=== PATIENT | female | born 1960 | race Caucasian/White ===

== ENCOUNTER → 2018-03-15 | Day surgery (SDC) | payer BC ==
[~2018-03-15] MED LIST: AMBIEN10 MG PO; BUPIVACAINE 0.25% 30ML SDV INJ ONE; BYDUREON INJ; BYSTOLIC10 MG PO; CEFAZOLIN SOD 1 GM/NS 50ML 50 ML IV ONE; COLESTIPOL HCL1 GM PO; DESFLURANE 240 ML BTL INH ONE; DEXAMETHASONE SOD PHOS INJ 4 MG/ML VIAL ONE; FENTANYL CITRATE/PF 100MCG/2 ML INJ ONE; LEVOTHYROXINE50 MCG PO; LIDOCAINE HCL 2% LOCAL INJ 5 ML SDV VIAL INJ ONE; METFORMIN HCL500 MG PO; MIDAZOLAM HCL 2 MG/2 ML VIAL ONE; MUPIROCIN 2% OINT 22 GM TUBE ONE; ONDANSETRON HCL INJ 2MG/ML 2ML 2 MG/ML VIAL ONE; PROPOFOL IV EMULSION 10 MG/ML 20 ML VIAL ONE; SAVELLA50 MG; [UNRECOGNIZED DRUG - OTHER]
--- OUTSIDE RECORDS SUMMARY | 2018-03-15 05:22 | XMS REPORT | Summary of Care ---
Author Author [facility] Organization [facility] Address Unknown Phone Unavailable Encounter HQ Janell(GEOFF) [phone] Date(s): 11/11/14 - 11/11/14 [facility] [address] [place] [address]- Discharge Disposition: Home Attending Physician: Connie Fisher DO Referring Physician: Connie Fisher DO Vital Signs No data available for this section Problem List Condition Effective Dates Status Health Status Informant Biliary calculus1 01/12/12 Active Diabetes mellitus2 01/12/12 Active Gallstones(Confirmed Active ) Hypertension(Confirm Active ed) Hypothyroid(Confirme Active d) 1Data migrated from [employer] on 07/05/14. 2Data migrated from [employer] on 07/05/14. Allergies, Adverse Reactions, Alerts Substance Reaction Severity Status morphine1 Active 1Data migrated from [employer] on 06/03/14. Originally documented as MORPHINE. unknown Medications No data available for this section Results No data available for this section Immunizations No data available for this section Procedures Procedure Date Related Diagnosis Body Site Hysterectomy 12/2007 Colonoscopy Diagnostic laparoscopy of female pelvis Esophagoduodenostomy Operation Tonsillectomy and adenoidectomy Social History Social History Type Response Alcohol Current, Type Liquor. Frequency: 1-2 times per week. Smoking Status Never smoker; Type: Cigarettes; Exposure to Tobacco Smoke None; Cigarette Smoking Last 365 Days No; Reg Smoking Cessation Counseling No Assessment and Plan No data available for this section
--- OUTSIDE RECORDS SUMMARY | 2018-03-15 05:22 | XMS REPORT | Summary of Care ---
Author Author ROSA DUTTA M.D. Organization Unknown Address Unknown Phone Unavailable Care Team Providers Care Property Preservation Specialist Name Role Phone ROSA DUTTA M.D. Unavailable Unavailable JOSE FRANCISCO TOVAR DO Unavailable Unavailable Unavailable Unavailable Functional Status Name Dates Details Functional status health issues are not documented Status: Name Dates Details Cognitive status health issues are not documented Status: Problems Name Dates Details Atrial septal defect (745.5, Q21.1) Status: Active Dizziness (780.4, R42) Status: Active Hyperlipidemia (272.4, E78.5) Status: Active Hypertension (401.9, I10) Status: Active Type 2 diabetes mellitus (250.00, E11.9) Status: Active Medications Name Dates Details Synthroid 50 MCG Oral Tablet TAKE 1 TABLET DAILY. * Start : 08-Nov-2013 Active Ambien 10 MG Oral Tablet TAKE 1 TABLET DAILY AT BEDTIME. * Refills: 0 * Start : 08-Nov-2013 Active Lovaza 1 GM Oral Capsule TAKE 2 CAPSULE TWICE DAILY * Refills: 0 * Start : 08-Nov-2013 Active Savella 50 MG Oral Tablet BID * Refills: 0 * Start : 08-Nov-2013 Active MetFORMIN HCl - 500 MG Oral Tablet TAKE 2 TABLET TWICE DAILY * Refills: 0 * Start : 08-Nov-2013 Active Bystolic 10 MG Oral Tablet TAKE 1 TABLET DAILY. * Refills: 0 * Start : 08-Nov-2013 Active ZyrTEC Allergy 10 MG Oral Tablet TAKE 1 TABLET DAILY NEEDED. * Refills: 0 * Start : 30-Jun-2017 Active Colestipol HCl - 1 GM Oral Tablet TAKE 1 TABLET DAILY. * Refills: 0 * Start : 30-Jun-2017 Active Bydureon 2 MG Subcutaneous Pen-injector once a week * Refills: 0 * Start : 25-Dec-2017 Active Allergies and Adverse Reactions Name Dates Details Morphine Derivatives (Allergy) Status: Active Past Medical History Name Dates Details Hyperlipidemia (272.4, E78.5) Status: Active Hypertension (401.9, I10) Status: Active History of hypothyroidism (V12.29, Z86.39) Status: Resolved Procedures Procedure Dates Details History of Laparoscopy (Diagnostic) Completed History of Tonsillectomy Completed History of Hysterectomy Completed Immunization Name Dates Details Immunizations not documented Family History Name Dates Details Family history of lung cancer (V16.1, Z80.1) Status: Active Family history of cardiac disorder (V17.49, Z82.49) Status: Active Name Dates Details Family history of cardiac disorder (V17.49, Z82.49) Status: Active Name Dates Details Family history of myocardial infarction (V17.3, Z82.49) Status: Active Family history of hyperlipidemia (V18.19, Z83.438) Status: Active Family history of cardiac disorder (V17.49, Z82.49) Status: Active Name Dates Details Family history of cardiac disorder (V17.49, Z82.49) Status: Active Social History Name Dates Details Unknown if ever smoked Vital Signs Date Test Result Details [id number] BP Systolic 124 mm[Hg] Status: BP Diastolic 79 mm[Hg] Status: Height 65 in Status: Weight 174 lb Status: Body Mass Index Calculated 28.96 kg/m2 Status: Body Surface Area Calculated 1.86 m2 Status: Heart Rate 79 /min Status: Results Date Description Value Details Results not documented Plan of Care Name Dates Details Planned Observations Planned Goals not documented Planned Encounters Appointment; , ECHO On: 13-Jun-2018 10:15 Appointment; ROSA DUTTA M.D. On: 29-Jun-2018 10:00 Interventions Provided Plan* HLD * - Continue Lovaza daily + fibrates * - LDL well controlled * - Low fat diet * HTN * - Well controlled. * - Continue Bystolic 10mg HS. * - Low sodium diet * DM * - On Metformin * - PCP managing * CAROTID BRUIT * - Check carotid US * RTC 6 months * Exercise encouraged Discussion/Summary* Reviewed and discussed clinical cardiac findings and medications. * EKG reviewed and discussed. Instructions Name Dates Details Instructions not documented Encounters Appointment; ROSA DUTTA M.D. Encounter Diagnosis: Problem not documented On: 16-Jun-2016 9:00 Appointment; SE, ECHO Encounter Diagnosis: Problem not documented On: 20-Jul-2016 9:00 Appointment; ROSA DUTTA M.D. Encounter Diagnosis: Problem not documented On: 14-Dec-2016 9:30 Appointment; ROSA DUTTA M.D. Encounter Diagnosis: Problem not documented On: 30-Jun-2017 10:00 Appointment; ROSA DUTTA M.D. Encounter Diagnosis: Problem not documented On: 25-Dec-2017 13:45
--- OUTSIDE RECORDS SUMMARY | 2018-03-15 05:22 | XMS REPORT | Summary of Care ---
Author Organization Unknown Address Unknown Phone Unavailable Encounter HQ Uri_latia(GEOFF) [id number] Date(s): 03/21/14 - 03/22/14 [facility] [address] Discharge Disposition: Home Physician Attending: Bhupinder Sims MD Physician Admitting: Bhupinder Sims MD Physician_Referring: Ron Jones MD Reason for Visit OPEN CHOLECYSTECTOMY Vital Signs 1 2 3 Most recent to oldest [Reference Range]: 167.6 cm (03/22/14 8:52 AM) 167.64 cm (03/20/14 7:03 AM) Height 98.4 DegF (03/22/14 8:00 AM) 98.2 DegF (03/22/14 3:43 AM) 98.5 DegF (03/21/14 11:38 PM) Temperature Oral [96.4-99.1 DegF] 126 mmHg (03/22/14 8:00 AM) 124 mmHg (03/22/14 3:43 AM) 134 mmHg (03/21/14 11:38 PM) Systolic Blood Pressure [90-140 mmHg] 82 mmHg (03/22/14 8:00 AM) 75 mmHg (03/22/14 3:43 AM) 80 mmHg (03/21/14 11:38 PM) Diastolic Blood Pressure [60-90 mmHg] 14 BRMIN (03/22/14 8:00 AM) 16 BRMIN (03/22/14 3:43 AM) 16 BRMIN (03/21/14 11:38 PM) Respiratory Rate [14-20 BRMIN] 106 bpm *HI* (03/22/14 8:00 AM) 102 bpm *HI* (03/22/14 3:43 AM) 109 bpm *HI* (03/21/14 11:38 PM) Peripheral Pulse Rate [60-100 bpm] 79.545 kg (03/22/14 8:52 AM) 79.545 kg (03/20/14 7:03 AM) Weight 28.32 m2 (03/22/14 8:52 AM) 28.3 m2 (03/20/14 7:03 AM) Body Mass Index Problem List Condition Effective Dates Status Health Status Informant Diabetes Active mellitus(Confirmed) Gallstones(Confirmed Active ) Hypertension(Confirm Active ed) Hypothyroid(Confirme Active d) Allergies, Adverse Reactions, Alerts Substance Reaction Severity Status morphine Active Medications acetaminophen 1,000 mg, Route: IVPB, Drug form: INJ, ONCE, Dosing Weight 79.545, kg, PRN Pain Score 1-3, Start date: 03/20/14 13:08:00, Duration: 1 doses or times, Stop date: Limited # of times Start Date: 03/20/14 Stop Date: 03/20/14 Status: Discontinued Ancef 1 gm, 100 mL, Route: IVPB, Drug form: INJ, ABXQ8H, Dosing Weight 79.545, kg, Sta rt date: 03/21/14 17:00:00, Duration: 30 day, Stop date: 04/20/14 9:00:00 Start Date: 03/21/14 Stop Date: 03/22/14 Status: Discontinued Bystolic 5 mg, 2 tab, Route: PO, Drug form: TAB, Daily, Dosing Weight 79.545, kg, Start d ate: 03/21/14 9:00:00, Duration: 30 day, Stop date: 04/19/14 9:00:00 Notes: Same as: Bystolic Start Date: 03/21/14 Stop Date: 03/22/14 Status: Discontinued Bystolic 5 mg oral tablet 5 mg=1 tab, PO, Daily, # 30 tab, 0 Refill(s) Start Date: 03/20/14 Status: Ordered ceFAZolin 2 gm, Route: IVPB, ONCE, Dosing Weight 79.545, kg, Start date: 03/20/14 9:28:00, Stop date: 03/20/14 9:28:00 Start Date: 03/20/14 Stop Date: 03/20/14 Status: Completed ceFAZolin (SCIP) 1 gm, 100 mL, Route: IVPB, Drug form: INJ, Q8H, Dosing Weight 79.545, kg, Start date: 03/20/14 18:00:00, Duration: 3 doses or times, Stop date: 03/21/14 10:00:0 0 Start Date: 03/20/14 Stop Date: 03/21/14 Status: Completed Dextrose 50% Syringe 25 gm, 50 mL, Route: IVP, Drug Form: INJ, Dosing Weight 79.545, kg, PRN, PRN Blo od Glucose Results, Start date: 03/20/14 17:33:00, Duration: 30 day, Stop date: 04/19/14 18:32:00 Start Date: 03/20/14 Stop Date: 03/22/14 Status: Discontinued Dextrose 50% Syringe 12.5 gm, 25 mL, Route: IVP, Drug Form: INJ, Dosing Weight 79.545, kg, PRN, PRN B lood Glucose Results, Start date: 03/20/14 17:33:00, Duration: 30 day, Stop date : 04/19/14 18:32:00 Start Date: 03/20/14 Stop Date: 03/22/14 Status: Discontinued diphenhydrAMINE 12.5 mg, Route: IVP, Drug form: INJ, Q6H, Dosing Weight 79.545, kg, PRN Itching, Start date: 03/20/14 13:08:00, Duration: 30 day, Stop date: 04/19/14 13:07:00 Start Date: 03/20/14 Stop Date: 03/20/14 Status: Discontinued fentaNYL 25 microgram, Route: IVP, Q5Min, Dosing Weight 79.545, kg, PRN Pain Score 4-6, S tart date: 03/20/14 13:08:00, Duration: 4 doses or times, Stop date: Limited # o f times Start Date: 03/20/14 Stop Date: 03/20/14 Status: Discontinued fentaNYL 50 microgram, Route: IVP, Q5Min, Dosing Weight 79.545, kg, PRN Pain Score 7-10, Start date: 03/20/14 13:08:00, Duration: 2 doses or times, Stop date: Limited # of times Start Date: 03/20/14 Stop Date: 03/20/14 Status: Completed Fish Oil 2 gm, 2 cap, Route: PO, Drug form: CAP, BID, Dosing Weight 79.545, kg, Start redd e: 03/21/14 9:00:00, Duration: 30 day, Stop date: 04/19/14 17:00:00 Notes: (Same as: MaxEPA, [place] 3 fish oil )Non-Formulary Drug Start Date: 03/21/14 Stop Date: 03/22/14 Status: Discontinued Fish Oil 1000 mg oral capsule 2 caps, PO, BID, 0 Refill(s) Start Date: 03/20/14 Status: Ordered flumazenil 0.2 mg, Route: IVP, PRN, Dosing Weight 79.545, kg, PRN Benzodiazepine Reversal, Initial dose, Start date: 03/20/14 13:08:00, Duration: 30 day, Stop date: 14:07:00 Start Date: 03/20/14 Stop Date: 03/20/14 Status: Discontinued glucagon 1 mg, Route: IM, Drug form: PDR/INJ, PRN, Dosing Weight 79.545, kg, PRN Blood Gl ucose Results, Start date: 03/20/14 17:33:00, Duration: 30 day, Stop date: 04/19 18:32:00 Start Date: 03/20/14 Stop Date: 03/22/14 Status: Discontinued hydromorphone 0.3 mg, 0.3 mL, Route: IVP, Drug form: INJ, Q4H, Dosing Weight 79.545, kg, PRN P ain Score 4-6, Start date: 03/20/14 12:16:00, Duration: 30 day, Stop date: 04/19 12:15:00 Start Date: 03/20/14 Stop Date: 03/22/14 Status: Discontinued hydromorphone 0.5 mg, 0.5 mL, Route: IVP, Drug form: INJ, Q5Min, Dosing Weight 79.545, kg, PRN Pain Score 7-10, Start date: 03/20/14 13:08:00, Duration: 4 doses or times, Stop date: Limited # of times Start Date: 03/20/14 Stop Date: 03/20/14 Status: Discontinued insulin aspart 5 unit, 0.05 mL, Route: SUB-Q, Drug form: SOLN, TID-Before Meals, Dosing Weight 79.545, kg, PRN Blood Glucose Results, Start date: 03/20/14 17:33:00, Duration: 30 day, Stop date: 04/19/14 17:32:00 Notes: Roll in palms of hands gently; Do not shake vigorously. (Same as: NovoLO G)"single patient use only" Stable for 28 days at room temperature.Expires in _ ____ days from Date Start Date: 03/20/14 Stop Date: 03/22/14 Status: Discontinued insulin aspart 4 unit, 0.04 mL, Route: SUB-Q, Drug form: SOLN, TID-Before Meals, Dosing Weight 79.545, kg, PRN Blood Glucose Results, Start date: 03/20/14 17:33:00, Duration: 30 day, Stop date: 04/19/14 17:32:00 Notes: Roll in palms of hands gently; Do not shake vigorously. (Same as: NovoLO G)"single patient use only" Stable for 28 days at room temperature.Expires in _ ____ days from Date Start Date: 03/20/14 Stop Date: 03/22/14 Status: Discontinued insulin aspart 3 unit, 0.03 mL, Route: SUB-Q, Drug form: SOLN, TID-Before Meals, Dosing Weight 79.545, kg, PRN Blood Glucose Results, Start date: 03/20/14 17:33:00, Duration: 30 day, Stop date: 04/19/14 17:32:00 Notes: Roll in palms of hands gently; Do not shake vigorously. (Same as: NovoLO G)"single patient use only" Stable for 28 days at room temperature.Expires in _ ____ days from Date Start Date: 03/20/14 Stop Date: 03/22/14 Status: Discontinued insulin aspart 2 unit, 0.02 mL, Route: SUB-Q, Drug form: SOLN, TID-Before Meals, Dosing Weight 79.545, kg, PRN Blood Glucose Results, Start date: 03/20/14 17:33:00, Duration: 30 day, Stop date: 04/19/14 17:32:00 Notes: Roll in palms of hands gently; Do not shake vigorously. (Same as: NovoLO G)"single patient use only" Stable for 28 days at room temperature.Expires in _ ____ days from Date Start Date: 03/20/14 Stop Date: 03/22/14 Status: Discontinued insulin aspart 1 unit, 0.01 mL, Route: SUB-Q, Drug form: SOLN, TID-Before Meals, Dosing Weight 79.545, kg, PRN Blood Glucose Results, Start date: 03/20/14 17:33:00, Duration: 30 day, Stop date: 04/19/14 17:32:00 Notes: Roll in palms of hands gently; Do not shake vigorously. (Same as: NovoLO G)"single patient use only" Stable for 28 days at room temperature.Expires in _ ____ days from Date Start Date: 03/20/14 Stop Date: 03/22/14 Status: Discontinued ketorolac 30 mg, Route: IVP, ONCE, Dosing Weight 79.545, kg, Start date: 03/20/14 13:08:00 , Duration: 1 doses or times, Stop date: 03/20/14 13:08:00 Start Date: 03/20/14 Stop Date: 03/20/14 Status: Discontinued Lactated Ringers Injection IV 1,000 mL 1,000 mL, Rate: 125 ml/hr, Infuse over: 8 hr, Route: IV, Dosing Weight 79.545 kg , Total Volume: 1,000, Start date: 03/20/14 12:16:00, Duration: 30 day, Stop redd e: 04/19/14 12:15:00 Start Date: 03/20/14 Stop Date: 03/22/14 Status: Discontinued Lactated Ringers Injection IV 1000 mL 1,000 mL, Rate: 125 ml/hr, Infuse over: 8 hr, Route: IV, Dosing Weight 79.545 kg , Total Volume: 1,000, Start date: 03/20/14 13:08:00, Duration: 30 day, Stop redd e: 04/19/14 13:07:00 Start Date: 03/20/14 Stop Date: 03/20/14 Status: Discontinued Lactated Ringers Injection IV 1000 mL 1,000 mL, Rate: 25 ml/hr, Infuse over: 40 hr, Route: IV, Dosing Weight 79.545 kg , Total Volume: 1,000, Start date: 03/20/14 9:28:00, Duration: 30 day, Stop date : 04/19/14 9:27:00 Start Date: 03/20/14 Stop Date: 03/20/14 Status: Discontinued Levothroid 25 microgram, 1 tab, Route: PO, Drug form: TAB, Q630AM, Dosing Weight 79.545, kg , Start date: 03/21/14 6:30:00, Duration: 30 day, Stop date: 04/19/14 6:30:00 Notes: Take 1 hour before or 2 hours after meal; Enteral feeds may interefere wi th the absorption of this medication. (Same as:Levothroid) Start Date: 03/21/14 Stop Date: 03/22/14 Status: Discontinued Levothroid 25 mcg (0.025 mg) oral tablet 25 microgram=1 tab, PO, Daily, # 30 tab, 0 Refill(s) Start Date: 03/20/14 Status: Ordered meperidine 12.5 mg, Route: IVP, Q30Min, Dosing Weight 79.545, kg, PRN Other -See Comment, F or shivering, Start date: 03/20/14 13:08:00, Duration: 2 doses or times, Stop da te: Limited # of times Start Date: 03/20/14 Stop Date: 03/20/14 Status: Discontinued metFORMIN 500 mg oral tablet, extended release 1,000 mg=2 tab, PO, BID, # 30 tab, 0 Refill(s) Start Date: 03/20/14 Status: Ordered morphine Sulfate 2 mg, Route: IVP, Q5Min, Dosing Weight 79.545, kg, PRN Pain Score 4-6, Start redd e: 03/20/14 13:08:00, Duration: 5 doses or times, Stop date: Limited # of times Start Date: 03/20/14 Stop Date: 03/20/14 Status: Discontinued morphine Sulfate 4 mg, Route: IVP, Q5Min, Dosing Weight 79.545, kg, PRN Pain Score 7-10, Start da te: 03/20/14 13:08:00, Duration: 3 doses or times, Stop date: Limited # of times Start Date: 03/20/14 Stop Date: 03/20/14 Status: Discontinued naloxone 0.04 mg, Route: IVP, Q2MIN, Dosing Weight 79.545, kg, PRN Narcotic Reversal, Sta rt date: 03/20/14 13:08:00, Duration: 8 doses or times, Stop date: Limited # of times Start Date: 03/20/14 Stop Date: 03/20/14 Status: Discontinued NexIUM 40 mg, Route: PO, Daily, Dosing Weight 79.545, kg, Priority: NOW, Start date: 16:04:00, Duration: 30 day, Stop date: 04/20/14 9:00:00 Start Date: 03/21/14 Stop Date: 03/21/14 Status: Deleted ondansetron 4 mg, 2 mL, Route: IVP, Drug form: INJ, Q6H, Dosing Weight 79.545, kg, PRN Nause a & Vomiting, Start date: 03/20/14 12:16:00, Duration: 30 day, Stop date: 04/19/14 12:15:00 Notes: (Same as: Neto) Start Date: 03/20/14 Stop Date: 03/22/14 Status: Discontinued ondansetron 4 mg, Route: IVP, ONCE, Dosing Weight 79.545, kg, PRN Nausea & Vomiting, Start date: 03/20/14 13:08:00 Start Date: 03/20/14 Stop Date: 03/20/14 Status: Discontinued oxyCODONE 10 mg, Route: PO, Drug form: TAB, Q4H, Dosing Weight 79.545, kg, PRN Pain Score 7-10, Start date: 03/20/14 13:08:00, Duration: 30 day, Stop date: 04/19/14 13:07 :00 Start Date: 03/20/14 Stop Date: 03/20/14 Status: Discontinued oxyCODONE 5 mg, Route: PO, Drug form: TAB, Q4H, Dosing Weight 79.545, kg, PRN Pain Score 4 -6, Start date: 03/20/14 13:08:00, Duration: 30 day, Stop date: 04/19/14 13:07:0 0 Start Date: 03/20/14 Stop Date: 03/20/14 Status: Discontinued oxyCODONE 5 mg/5 mL oral solution 5 mg, Route: NG, Drug form: LIQ, Q4H, Dosing Weight 79.545, kg, PRN Pain Score 4 -6, Start date: 03/20/14 13:08:00, Duration: 30 day, Stop date: 04/19/14 13:07:0 0 Start Date: 03/20/14 Stop Date: 03/20/14 Status: Discontinued oxyCODONE 5 mg/5 mL oral solution 10 mg, Route: NG, Drug form: LIQ, Q4H, Dosing Weight 79.545, kg, PRN Pain Score 7-10, Start date: 03/20/14 13:08:00, Duration: 30 day, Stop date: 04/19/14 13:07 :00 Start Date: 03/20/14 Stop Date: 03/20/14 Status: Discontinued Premarin Vaginal 0.625 mg/g cream with applicator 1 appl, VAG, Bedtime, # 42 gm, 0 Refill(s) Start Date: 03/20/14 Status: Ordered promethazine 6.25 mg, Route: IVPB, ONCE, Dosing Weight 79.545, kg, PRN Nausea & Vomiting, Start date: 03/20/14 13:08:00 Start Date: 03/20/14 Stop Date: 03/20/14 Status: Discontinued Protonix 40 mg, 1 tab, Route: PO, Drug form: ECTAB, Before Dinner, Start date: 03/21/14 1 6:30:00, Duration: 30 day, Stop date: 04/19/14 16:30:00 Notes: Tablet should not be chewed or crushed.(Same as: Protonix) Start Date: 03/21/14 Stop Date: 03/22/14 Status: Discontinued Savella 50 mg, 0.5 tab, Route: PO, Drug form: TAB, BID, Dosing Weight 79.545, kg, Start date: 03/21/14 9:00:00, Stop date: 04/18/14 0:00:00 Notes: Same as: Savella Non Formulary Start Date: 03/21/14 Stop Date: 03/22/14 Status: Discontinued Savella 50 mg oral tablet 50 mg=1 tab, PO, BID, 0 Refill(s) Start Date: 03/20/14 Status: Ordered Tylenol with Codeine #3 oral tablet 1 tab, PO, Q6H, for pain, # 20 tab, 0 Refill(s), given to patient Start Date: 03/22/14 Status: Ordered zolpidem 10 mg, 1 tab, Route: PO, Drug form: TAB, Bedtime, Dosing Weight 79.545, kg, PRN as needed for sleep, Start date: 03/20/14 17:20:00, Stop date: 04/19/14 17:19:00 Notes: (Same As: Xavier) Start Date: 03/20/14 Stop Date: 03/22/14 Status: Discontinued zolpidem 10 mg oral tablet 10 mg=1 tab, PO, Bedtime, for sleep, 0 Refill(s) Start Date: 03/20/14 Status: Ordered Results ELECTROLYTES 1 2 3 Most recent to oldest [Reference Range]: 136 mEq/L (03/21/14 3:50 AM) 138 mEq/L (03/20/14 7:17 AM) Sodium Lvl [135-145 mEq/L] 4.0 mEq/L (03/21/14 3:50 AM) 3.5 mEq/L (03/20/14 7:17 AM) Potassium Lvl [3.5-5.1 mEq/L] 100 mEq/L (03/21/14 3:50 AM) 101 mEq/L (03/20/14 7:17 AM) Chloride Lvl [95-109 mEq/L] 24 mEq/L (03/21/14 3:50 AM) 29 mEq/L (03/20/14 7:17 AM) CO2 [24-32 mEq/L] 16.0 mEq/L (03/21/14 3:50 AM) 11.5 mEq/L (03/20/14 7:17 AM) AGAP [10.0-20.0 mEq/L] CHEM PANEL 1 2 3 Most recent to oldest [Reference Range]: 0.6 mg/dL (03/21/14 3:50 AM) 0.8 mg/dL (03/20/14 7:17 AM) Creatinine Lvl [0.5-1.4 mg/dL] 104 mL/min/1.73m2 1 *NA* (03/21/14 3:50 AM) 84 mL/min/1.73m2 2 *NA* (03/20/14 7:17 AM) eGFR 5 mg/dL *LOW* (03/21/14 3:50 AM) 7 mg/dL (03/20/14 7:17 AM) BUN [7-22 mg/dL] 8 (03/21/14 3:50 AM) 9 (03/20/14 7:17 AM) B/C Ratio [6-25] 120 mg/dL 3 *HI* (03/21/14 3:50 AM) 123 mg/dL 4 *HI* (03/20/14 7:17 AM) Glucose Lvl [70-99 mg/dL] 6.0 g/dL *LOW* (03/21/14 3:50 AM) 7.7 g/dL (03/20/14 7:17 AM) Total Protein [6.4-8.4 g/dL] 2.5 g/dL *LOW* (03/21/14 3:50 AM) 3.1 g/dL *LOW* (03/20/14 7:17 AM) Albumin Lvl [3.5-5.0 g/dL] 3.5 g/dL (03/21/14 3:50 AM) 4.6 g/dL *HI* (03/20/14 7:17 AM) Globulin [2.0-4.0 g/dL] 0.7 (03/21/14 3:50 AM) 0.7 (03/20/14 7:17 AM) A/G Ratio [0.7-1.6] 8.4 mg/dL *LOW* (03/21/14 3:50 AM) 9.6 mg/dL (03/20/14 7:17 AM) Calcium Lvl [8.5-10.5 mg/dL] 114 unit/L *HI* (03/21/14 3:50 AM) 158 unit/L *HI* (03/20/14 7:17 AM) ALT [0-65 unit/L] 40 unit/L *HI* (03/21/14 3:50 AM) 19 unit/L (03/20/14 7:17 AM) AST [0-37 unit/L] 178 unit/L *HI* (03/21/14 3:50 AM) 181 unit/L *HI* (03/20/14 7:17 AM) Alk Phos [39-136 unit/L] 0.4 mg/dL (03/21/14 3:50 AM) 0.4 mg/dL (03/20/14 7:17 AM) Bili Total [0.2-1.3 mg/dL] 28 unit/L (03/20/14 7:17 AM) Amylase Lvl [25-115 unit/L] 1Result Comment: The eGFR is calculated using the CKD-EPI formula. In most young, healthy individuals the eGFR will be >90 mL/min/1.73m2. The eGFR declines with age. An eGFR of 60-89 may be normal in some populations, particularly the elderly, for whom the CKD-EPI formula has not been extensively validated. Use of the eGFR is not recommended in the following populations: Individuals with unstable creatinine concentrations, including patients and those with serious co-morbid conditions. Patients with extremes in muscle mass or diet. The data above are obtained from the National Kidney Disease Education Program ( NKDEP) which additionally recommends that when the eGFR is used in patients with extremes of body mass index for purposes of drug dosing, the eGFR should be mul tiplied by the estimated BMI. 2Result Comment: The eGFR is calculated using the CKD-EPI formula. In most young, healthy individuals the eGFR will be >90 mL/min/1.73m2. The eGFR declines with age. An eGFR of 60-89 may be normal in some populations, particularly the elderly, for whom the CKD-EPI formula has not been extensively validated. Use of the eGFR is not recommended in the following populations: Individuals with unstable creatinine concentrations, including patients and those with serious co-morbid conditions. Patients with extremes in muscle mass or diet. The data above are obtained from the National Kidney Disease Education Program ( NKDEP) which additionally recommends that when the eGFR is used in patients with extremes of body mass index for purposes of drug dosing, the eGFR should be mul tiplied by the estimated BMI. 3Interpretive Data: Adult reference range values reflect the clinical guidelines of the [place] [employer]. 4Interpretive Data: Adult reference range values reflect the clinical guidelines of the [place] [employer]. URINE AND STOOL 1 2 3 Most recent to oldest [Reference Range]: Slight *ABN* (03/20/14 7:17 AM) UA Turbidity [Clear] Yellow *NA* (03/20/14 7:17 AM) UA Color [Yellow] 5.0 (03/20/14 7:17 AM) UA pH [5.0-8.0] 1.019 (03/20/14 7:17 AM) UA Spec Grav [<=1.030] Negative mg/dL *NA* (03/20/14 7:17 AM) UA Glucose [Negative mg/dL] Negative (03/20/14 7:17 AM) UA Blood [Negative] Negative mg/dL *NA* (03/20/14 7:17 AM) UA Ketones [Negative mg/dL] Negative mg/dL (03/20/14 7:17 AM) UA Protein [Negative mg/dL] <=1.0 mg/dL *NA* (03/20/14 7:17 AM) UA Urobilinogen [0.1-1.0 mg/dL] Negative *NA* (03/20/14 7:17 AM) UA Bili [Negative] Negative (03/20/14 7:17 AM) UA Leuk Est [Negative] Negative (03/20/14 7:17 AM) UA Nitrite [Negative] 7 /HPF *HI* (03/20/14 7:17 AM) UA WBC [0-5 /HPF] 3 /HPF *HI* (03/20/14 7:17 AM) UA RBC [0-2 /HPF] Few /HPF *NA* (03/20/14 7:17 AM) UA Bacteria [None Seen /HPF] Occasional /LPF *NA* (03/20/14 7:17 AM) UA Sq Epi [Few /LPF] Many /LPF *ABN* (03/20/14 7:17 AM) UA Mucus [None Seen /LPF] HEMATOLOGY 1 2 3 Most recent to oldest [Reference Range]: 12.2 K/CMM *HI* (03/22/14 3:35 AM) 11.0 K/CMM *HI* (03/21/14 3:50 AM) 7.9 K/CMM (03/20/14 7:17 AM) WBC [3.7-10.4 K/CMM] 3.68 M/CMM *LOW* (03/22/14 3:35 AM) 3.92 M/CMM *LOW* (03/21/14 3:50 AM) 4.32 M/CMM (03/20/14 7:17 AM) RBC [4.20-5.40 M/CMM] 10.8 g/dL *LOW* (03/22/14 3:35 AM) 11.6 g/dL *LOW* (03/21/14 3:50 AM) 12.7 g/dL (03/20/14 7:17 AM) Hgb [12.0-16.0 g/dL] 32.5 % *LOW* (03/22/14 3:35 AM) 34.4 % *LOW* (03/21/14 3:50 AM) 37.8 % (03/20/14 7:17 AM) Hct [36.0-48.0 %] 88.3 fL (03/22/14 3:35 AM) 87.7 fL (03/21/14 3:50 AM) 87.4 fL (03/20/14 7:17 AM) MCV [80.0-98.0 fL] 29.4 pg (03/22/14 3:35 AM) 29.7 pg (03/21/14 3:50 AM) 29.5 pg (03/20/14 7:17 AM) MCH [27.0-31.0 pg] 33.3 g/dL (03/22/14 3:35 AM) 33.8 g/dL (03/21/14 3:50 AM) 33.7 g/dL (03/20/14 7:17 AM) MCHC [32.0-36.0 g/dL] 12.7 % (03/22/14 3:35 AM) 12.6 % (03/21/14 3:50 AM) 12.4 % (03/20/14 7:17 AM) RDW [11.5-14.5 %] 303 K/CMM (03/22/14 3:35 AM) 331 K/CMM (03/21/14 3:50 AM) 315 K/CMM (03/20/14 7:17 AM) Platelet [133-450 K/CMM] 6.5 fL *LOW* (03/22/14 3:35 AM) 7.0 fL *LOW* (03/21/14 3:50 AM) 6.9 fL *LOW* (03/20/14 7:17 AM) MPV [7.4-10.4 fL] 72.7 % (03/21/14 3:50 AM) 61.1 % (03/20/14 7:17 AM) Segs [45.0-75.0 %] 17.3 % *LOW* (03/21/14 3:50 AM) 24.2 % (03/20/14 7:17 AM) Lymphocytes [20.0-40.0 %] 9.5 % (03/21/14 3:50 AM) 10.9 % (03/20/14 7:17 AM) Monocytes [2.0-12.0 %] 0.1 % (03/21/14 3:50 AM) 2.8 % (03/20/14 7:17 AM) Eosinophils [0.0-4.0 %] 0.4 % (03/21/14 3:50 AM) 1.0 % (03/20/14 7:17 AM) Basophils [0.0-1.0 %] 8.0 K/CMM (03/21/14 3:50 AM) 4.8 K/CMM (03/20/14 7:17 AM) Segs-Bands # [1.5-8.1 K/CMM] 1.9 K/CMM (03/21/14 3:50 AM) 1.9 K/CMM (03/20/14 7:17 AM) Lymphocytes # [1.0-5.5 K/CMM] 1.0 K/CMM *HI* (03/21/14 3:50 AM) 0.9 K/CMM *HI* (03/20/14 7:17 AM) Monocytes # [0.0-0.8 K/CMM] 0.2 K/CMM (03/20/14 7:17 AM) Eosinophils # [0.0-0.5 K/CMM] 0.1 K/CMM (03/20/14 7:17 AM) Basophils # [0.0-0.2 K/CMM] Medications Administered During Your Visit No data available for this section Immunizations No data available for this section Procedures Procedure Type Body Site Date of Procedure Related Diagnosis Colonoscopy Diagnostic laparoscopy of female pelvis Esophagoduodenostomy Hysterectomy 12/2007 Operation Tonsillectomy and adenoidectomy Social History Social History Type Response Alcohol Use: Current, Type: Liquor, Frequency: 1-2 times per week Smoking Status Never smoker, Type: Cigarettes, Exposure to Tobacco Smoke None, Cigarette Smoking Last 365 Days No, Reg Smoking Cessation Counseling No
--- OUTSIDE RECORDS SUMMARY | 2018-03-15 05:22 | XMS REPORT | Summary of Care ---
Author Organization Unknown Address Unknown Phone Unavailable Encounter HQ Sonalntr_latia(GEOFF) [id number] Date(s): 09/17/13 - 09/17/13 [facility] [address] Discharge Disposition: Home Physician Attending: Connie Fisher DO Physician_Referring: Connie Fisher DO Reason for Visit SCREENING Problem List No data available for this section Allergies, Adverse Reactions, Alerts No data available for this section Medications No data available for this section Medications Administered During Your Visit No data available for this section Immunizations No data available for this section
--- OUTSIDE RECORDS SUMMARY | 2018-03-15 05:22 | XMS REPORT | Summary of Care ---
Author Author [facility] Organization [facility] Address Unknown Phone Unavailable Encounter HQ Janell(FIN) [id number] Date(s): 03/21/17 - 03/21/17 [facility] [address] [place] [address]- [phone] Encounter Diagnosis Encounter for screening mammogram for malignant neoplasm of breast (Final) - 03/24/17 Discharge Disposition: Home or Self Care Attending Physician: Connie Fisher DO Referring Physician: [...] Procedures Procedure Date Related Diagnosis Body Site Status Hysterectomy 12/2007 Completed Colonoscopy Completed Diagnostic laparoscopy of female pelvis Completed Esophagoduodenostomy Completed Operation Completed Tonsillectomy and adenoidectomy Completed Social History Social History Type Response Alcohol Current, Type Liquor. Frequency: 1-2 times per week. Smoking Status Never smoker; Type: Cigarettes; Exposure to Tobacco Smoke None; Cigarette Smoking Last 365 Days No; Reg Smoking Cessation Counseling No entered on: 03/20/14 Assessment and Plan No data available for this section
--- OUTSIDE RECORDS SUMMARY | 2018-03-15 05:22 | XMS REPORT | Continuity of Care Document ---
Author Author [facility] Interface Address Unknown Phone Unavailable Problems Problem Status Onset Date Classification Date Reported Comments Source Encounter for screening mammogram for malignant neoplasm of breast 03/25/2017 06/27/2017 [facility] ROUTINE SCREENING LAST MMG W/ Active 02/17/2017 [facility] SCREENING *NO IMPLANTS/NO PAIN/LAST MMG Active 12/18/2015 [facility] SCREENING MAMMO Active 11/04/2014 [facility] UNK Active 03/19/2014 [facility] OPEN CHOLECYSTECTOMY Active 03/19/2014 [facility] 574.20 Active 03/19/2014 [facility] SCREENING Active 09/09/2013 [facility] ROUTINE Active 07/04/2012 [facility] Biliary calculus<sup>1</sup> Active 01/12/2012 Problem 06/27/2017 Data migrated from Ramen on 07/05/14. [facility] Diabetes mellitus<sup>2</sup> Active 01/12/2012 Problem 06/27/2017 Data migrated from Ramen on 07/05/14. [facility] DIABETES, HTN, COLON CA SCRENNING, CONSTIPATION, FAMILY Active 09/02/2011 [facility] Gallstones Active Problem 06/27/2017 [facility] Hypertension Active Problem 06/27/2017 [facility] Hypothyroid Active Problem 06/27/2017 [facility] Final: Encounter for screening mammogram for malignant neoplasm of breast 01/23/2016 [facility] Diabetes mellitus Active Problem 03/24/2014 [facility] CHOLELITHIASIS NOS Active [facility] Medications Medication Details Route Status Patient Instructions Ordering Provider Order Date Source Acetaminophen 300 MG / Codeine Phosphate 30 MG Oral Tablet [Tylenol with Codeine #3] 1 tab, PO, Q6H, for pain, # 20 tab, 0 Refill(s), given to patient Active 03/22/2014 [facility] Ancef 1 gm, 100 mL, Route: IVPB, Drug form: INJ, ABXQ8H, Dosing Weight 79.545, kg, Start date: 03/21/14 17:00:00, Duration: 30 day, Stop date: 04/20/14 9:00:00 No Longer Active 03/21/2014 [facility] Protonix 40 mg, 1 tab, Route: PO, Drug form: ECTAB, Before Dinner, Start date: 03/21/14 16:30:00, Duration: 30 day, Stop date: 04/19/14 16:30:00Notes: Tablet should not be chewed or crushed. (Same as: Protonix) No Longer Active 03/21/2014 [facility] Nexium 40 mg, Route: PO, Daily, Dosing Weight 79.545, kg, Priority: NOW, Start date: 03/21/14 16:04:00, Duration: 30 day, Stop date: 04/20/14 9:00:00 Inactive 03/21/2014 [facility] Fish Oil 2 gm, 2 cap, Route: PO, Drug form: CAP, BID, Dosing Weight 79.545, kg, Start date: 03/21/14 9:00:00, Duration: 30 day, Stop date: 04/19/14 17:00:00Notes: (Same as: MaxEPA, [place] 3 fish oil ) Non-Formulary Drug No Longer Active 03/21/2014 [facility] Bystolic 5 mg, 2 tab, Route: PO, Drug form: TAB, Daily, Dosing Weight 79.545, kg, Start date: 03/21/14 9:00:00, Duration: 30 day, Stop date: 04/19/14 9:00:00Notes: Same as: Bystolic No Longer Active 03/21/2014 [facility] Savella 50 mg, 0.5 tab, Route: PO, Drug form: TAB, BID, Dosing Weight 79.545, kg, Start date: 03/21/14 9:00:00, Stop date: 04/18/14 0:00:00Notes: Same as: Savella Non Formulary No Longer Active 03/21/2014 [facility] Levothroid 25 microgram, 1 tab, Route: PO, Drug form: TAB, Q630AM, Dosing Weight 79.545, kg, Start date: 03/21/14 6:30:00, Duration: 30 day, Stop date: 04/19/14 6:30:00Notes: Take 1 hour before or 2 hours after meal; Enteral feeds may interefere with the absorption of this medication. (Same as:Levothroid) No Longer Active 03/21/2014 [facility] 10 ML Cefazolin 100 MG/ML Prefilled Syringe 1 gm, 100 mL, Route: IVPB, Drug form: INJ, Q8H, Dosing Weight 79.545, kg, Start date: 03/20/14 18:00:00, Duration: 3 doses or times, Stop date: 03/21/14 10:00:00 No Longer Active 03/21/2014 [facility] Insulin, Aspart, Human 5 unit, 0.05 mL, Route: SUB-Q, Drug form: SOLN, TID-Before Meals, Dosing Weight 79.545, kg, PRN Blood Glucose Results, Start date: 03/20/14 17:33:00, Duration: 30 day, Stop date: 04/19/14 17:32:00Notes: Roll in palms of hands gently; Do not shake vigorously. (Same as: NovoLOG) "single patient use only" Stable for 28 days at room temperature. Expires in days from Date No Longer Active 03/20/2014 [facility] Glucagon 1 mg, Route: IM, Drug form: PDR/INJ, PRN, Dosing Weight 79.545, kg, PRN Blood Glucose Results, Start date: 03/20/14 17:33:00, Duration: 30 day, Stop date: 04/19/14 18:32:00 No Longer Active 03/20/2014 [facility] Dextrose 50% Syringe 25 gm, 50 mL, Route: IVP, Drug Form: INJ, Dosing Weight 79.545, kg, PRN, PRN Blood Glucose Results, Start date: 03/20/14 17:33:00, Duration: 30 day, Stop date: 04/19/14 18:32:00 No Longer Active 03/20/2014 [facility] zolpidem 10 mg, 1 tab, Route: PO, Drug form: TAB, Bedtime, Dosing Weight 79.545, kg, PRN as needed for sleep, Start date: 03/20/14 17:20:00, Stop date: 04/19/14 17:19:00Notes: (Same As: Xavier) No Longer Active 03/20/2014 [facility] Oxycodone 10 mg, Route: PO, Drug form: TAB, Q4H, Dosing Weight 79.545, kg, PRN Pain Score 7-10, Start date: 03/20/14 13:08:00, Duration: 30 day, Stop date: 04/19/14 13:07:00 Inactive 03/20/2014 [facility] Flumazenil 0.2 mg, Route: IVP, PRN, Dosing Weight 79.545, kg, PRN Benzodiazepine Reversal, Initial dose, Start date: 03/20/14 13:08:00, Duration: 30 day, Stop date: 04/19/14 14:07:00 Inactive 03/20/2014 [facility] Fentanyl 25 microgram, Route: IVP, Q5Min, Dosing Weight 79.545, kg, PRN Pain Score 4-6, Start date: 03/20/14 13:08:00, Duration: 4 doses or times, Stop date: Limited # of times Inactive 03/20/2014 [facility] Ketorolac 30 mg, Route: IVP, ONCE, Dosing Weight 79.545, kg, Start date: 03/20/14 13:08:00, Duration: 1 doses or times, Stop date: 03/20/14 13:08:00 Inactive 03/20/2014 [facility] Oxycodone Hydrochloride 1 MG/ML Oral Solution 5 mg, Route: NG, Drug form: LIQ, Q4H, Dosing Weight 79.545, kg, PRN Pain Score 4-6, Start date: 03/20/14 13:08:00, Duration: 30 day, Stop date: 04/19/14 13:07:00 Inactive 03/20/2014 [facility] Acetaminophen 1,000 mg, Route: IVPB, Drug form: INJ, ONCE, Dosing Weight 79.545, kg, PRN Pain Score 1-3, Start date: 03/20/14 13:08:00, Duration: 1 doses or times, Stop date: Limited # of times Inactive 03/20/2014 [facility] Naloxone 0.04 mg, Route: IVP, Q2MIN, Dosing Weight 79.545, kg, PRN Narcotic Reversal, Start date: 03/20/14 13:08:00, Duration: 8 doses or times, Stop date: Limited # of times Inactive 03/20/2014 [facility] Morphine 2 mg, Route: IVP, Q5Min, Dosing Weight 79.545, kg, PRN Pain Score 4-6, Start date: 03/20/14 13:08:00, Duration: 5 doses or times, Stop date: Limited # of times Inactive 03/20/2014 [facility] Meperidine 12.5 mg, Route: IVP, Q30Min, Dosing Weight 79.545, kg, PRN Other -See Comment, For shivering, Start date: 03/20/14 13:08:00, Duration: 2 doses or times, Stop date: Limited # of times Inactive 03/20/2014 [facility] Hydromorphone 0.5 mg, 0.5 mL, Route: IVP, Drug form: INJ, Q5Min, Dosing Weight 79.545, kg, PRN Pain Score 7-10, Start date: 03/20/14 13:08:00, Duration: 4 doses or times, Stop date: Limited # of times Inactive 03/20/2014 [facility] Ondansetron 4 mg, Route: IVP, ONCE, Dosing Weight 79.545, kg, PRN Nausea & Vomiting, Start date: 03/20/14 13:08:00 Inactive 03/20/2014 [facility] Promethazine 6.25 mg, Route: IVPB, ONCE, Dosing Weight 79.545, kg, PRN Nausea & Vomiting, Start date: 03/20/14 13:08:00 Inactive 03/20/2014 [facility] Diphenhydramine 12.5 mg, Route: IVP, Drug form: INJ, Q6H, Dosing Weight 79.545, kg, PRN Itching, Start date: 03/20/14 13:08:00, Duration: 30 day, Stop date: 04/19/14 13:07:00 Inactive 03/20/2014 [facility] Calcium Chloride 0.0014 MEQ/ML / Potassium Chloride 0.004 MEQ/ML / Sodium Chloride 0.103 MEQ/ML / Sodium Lactate 0.028 MEQ/ML Injectable Solution 1,000 mL, Rate: 125 ml/hr, Infuse over: 8 hr, Route: IV, Dosing Weight 79.545 kg, Total Volume: 1,000, Start date: 03/20/14 13:08:00, Duration: 30 day, Stop date: 04/19/14 13:07:00 Inactive 03/20/2014 [facility] Hydromorphone 0.3 mg, 0.3 mL, Route: IVP, Drug form: INJ, Q4H, Dosing Weight 79.545, kg, PRN Pain Score 4-6, Start date: 03/20/14 12:16:00, Duration: 30 day, Stop date: 04/19/14 12:15:00 No Longer Active 03/20/2014 [facility] Ondansetron 4 mg, 2 mL, Route: IVP, Drug form: INJ, Q6H, Dosing Weight 79.545, kg, PRN Nausea & Vomiting, Start date: 03/20/14 12:16:00, Duration: 30 day, Stop date: 04/19/14 12:15:00Notes: (Same as: Neto) No Longer Active 03/20/2014 [facility] Calcium Chloride 0.0014 MEQ/ML / Potassium Chloride 0.004 MEQ/ML / Sodium Chloride 0.103 MEQ/ML / Sodium Lactate 0.028 MEQ/ML Injectable Solution 1,000 mL, Rate: 125 ml/hr, Infuse over: 8 hr, Route: IV, Dosing Weight 79.545 kg, Total Volume: 1,000, Start date: 03/20/14 12:16:00, Duration: 30 day, Stop date: 04/19/14 12:15:00 No Longer Active 03/20/2014 [facility] Calcium Chloride 0.0014 MEQ/ML / Potassium Chloride 0.004 MEQ/ML / Sodium Chloride 0.103 MEQ/ML / Sodium Lactate 0.028 MEQ/ML Injectable Solution 1,000 mL, Rate: 25 ml/hr, Infuse over: 40 hr, Route: IV, Dosing Weight 79.545 kg, Total Volume: 1,000, Start date: 03/20/14 9:28:00, Duration: 30 day, Stop date: 04/19/14 9:27:00 Inactive 03/20/2014 [facility] Cefazolin 2 gm, Route: IVPB, ONCE, Dosing Weight 79.545, kg, Start date: 03/20/14 9:28:00, Stop date: 03/20/14 9:28:00 Inactive 03/20/2014 [facility] Estrogens, Conjugated ([facility]) 0.625 MG/ML Vaginal Cream [Premarin] 1 appl, VAG, Bedtime, # 42 gm, 0 Refill(s) Active 03/20/2014 [facility] Fish Oil 1000 mg oral capsule 2 caps, PO, BID, 0 Refill(s) Active 03/20/2014 [facility] zolpidem 10 mg oral tablet 10 mg=1 tab, PO, Bedtime, for sleep, 0 Refill(s) Active 03/20/2014 [facility] Levothyroxine Sodium 0.025 MG Oral Tablet [Levothroid] 25 microgram=1 tab, PO, Daily, # 30 tab, 0 Refill(s) Active 03/20/2014 [facility] nebivolol 5 MG Oral Tablet [Bystolic] 5 mg=1 tab, PO, Daily, # 30 tab, 0 Refill(s) Active 03/20/2014 [facility] Milnacipran hydrochloride 50 MG Oral Tablet [Savella] 50 mg=1 tab, PO, BID, 0 Refill(s) Active 03/20/2014 [facility] 24 HR Metformin hydrochloride 500 MG Extended Release Tablet 1,000 mg=2 tab, PO, BID, # 30 tab, 0 Refill(s) Active 03/20/2014 [facility] Allergies, Adverse Reactions, Alerts Substance Category Reaction Severity Reaction type Status Date Reported Comments Source morphine<sup>1</sup> Assertion Drug allergy Active 01/12/2012 Data migrated from Ramen on 06/03/14. Originally documented as MORPHINE. unknown [facility] morphine Assertion Drug allergy Active [facility] Immunizations Immunization Date Given Site Status Last Updated Comments Source Results Order Name Results Value Reference Range Date Interpretation Comments Source Breast Mammo Scrn LOPEZ w luc incl CAD MA Breast Mammo Scrn LOPEZ w luc incl CAD MA BILATERAL DIGITAL SCREENING MAMMOGRAM 3D/2D WITH CAD: 03/21/2017 CLINICAL: /Screen. Current study was evaluated with a Computer Aided Detection (CAD) system. COMPARISON:Comparison is made to exams dated: 01/20/2016 mammogram, 11/11/2014 mammogram, 09/17/2013 mammogram, 07/10/2012 mammogram, 01/11/2011 mammogram, and 12/16/2008 mammogram - [facility]. TECHNIQUE: Digital Breast Tomosynthesis was performed and utilized for Interpretation. [employer] Version 1.3 was utilized for computer aided detection. FINDINGS: The tissue of both breasts is heterogeneously dense, which could obscure detection of small masses. There are benign vascular calcifications in both breasts. There also are stable benign appearing densities in both breasts. No significant masses, calcifications, or other findings are seen in either breast. There has been no significant interval change. IMPRESSION: BENIGN RECOMMENDATION:There is no mammographic evidence of malignancy. A 1 year screening mammogram is recommended.(03/22/2018) This exam was interpreted at [id number] for [facility] Breast [place]. Marie Mahajan M.D. ap/penrad:03/21/2017 11:13:03 Algorithm Developer(s): Marcie Murry [facility] letter sent: BI-RADS 1/2 Mammogram BI-RADS: 2 Benign 03/21/2017 - - Read by: Marie Mahajan MD Dictated Date/time: 03/21/17 11:13 Electronically Signed by: Marie Mahajan MD 03/21/17 11:13 FINAL REPORT [facility] Digital Mammo Screen Lopez MA w luc Digital Mammo Screen Lopez MA w luc - DIGITAL MAMMO SCREEN LOPEZ MA W LUC BILATERAL DIGITAL SCREENING MAMMOGRAM 3D/2D WITH CAD: 01/20/2016 CLINICAL: Routine. 2D digital mammographic images and 3D digital tomosynthesis images were obtained in the CC and MLO projections. Current study was evaluated with a Computer Aided Detection (CAD) system. Comparison is made to exams dated: 11/11/2014 mammogram, 09/17/2013 mammogram, 07/10/2012 mammogram, 01/11/2011 mammogram, 12/16/2008 mammogram and 08/20/2007 mammogram - [facility]. The tissue of both breasts is heterogeneously dense, which could obscure detection of small masses. There are benign vascular calcifications in both breasts. There also is a benign calcification in the left breast. No significant masses, calcifications, or other findings are seen in either breast. There has been no significant interval change. IMPRESSION: BENIGN There is no mammographic evidence of malignancy. A 1 year screening mammogram is recommended. Iris Meraz M.D. jt/penrad:01/20/2016 10:48:16 Algorithm Developer: Amira Jones, [facility] This exam was dictated and interpreted by [id number] for [facility]. letter sent: Normal [facility] Mammogram BI-RADS: 2 Benign 01/20/2016 - - Read by: Iris Meraz MD Dictated Date/time: 01/20/16 10:48 Electronically Signed by: Iris Meraz MD 01/20/16 10:48 FINAL REPORT [facility] Digital Mammo Screen Lopez MA w luc Digital Mammo Screen Lopez MA w luc - DIGITAL MAMMO SCREEN LOPEZ MA W LUC BILATERAL DIGITAL SCREENING MAMMOGRAM 3D/2D WITH CAD: 11/11/2014 CLINICAL: Routine. 2D digital mammographic images and 3D digital tomosynthesis images were obtained in the CC and MLO projections. Current study was evaluated with a Computer Aided Detection (CAD) system. Comparison is made to exams dated: 09/17/2013 mammogram, 07/10/2012 mammogram, 01/11/2011 mammogram, 12/16/2008 mammogram, 08/20/2007 mammogram and 08/18/2006 mammogram - [facility]. The tissue of both breasts is heterogeneously dense, which could obscure detection of small masses. There are benign vascular calcifications in both breasts. No significant masses, calcifications, or other findings are seen in either breast. There has been no significant interval change. IMPRESSION: BENIGN There is no mammographic evidence of malignancy. A 1 year screening mammogram is recommended. Iris klein/penrad:11/11/2014 13:00:53 Algorithm Developer: Shey Quintanilla, [facility] This exam was dictated and interpreted by [id number] for [facility]. letter sent: Normal exam Mammogram BI-RADS: 2 Benign 11/11/2014 - - Read by: Iris Meraz MD Dictated Date/time: 11/11/14 13:00 Electronically Signed by: rIis Meraz MD 11/11/14 13:00 FINAL REPORT [facility] HEMATOLOGY Hct 32.5 % 36.0 - 48.0 03/22/2014 [facility] HEMATOLOGY Hgb 10.8 g/dL 12.0 - 16.0 03/22/2014 [facility] HEMATOLOGY RDW 12.7 % 11.5 - 14.5 03/22/2014 [facility] HEMATOLOGY MCV 88.3 fL 80.0 - 98.0 03/22/2014 [facility] HEMATOLOGY WBC 12.2 K/CMM 3.7 - 10.4 03/22/2014 [facility] HEMATOLOGY RBC 3.68 M/CMM 4.20 - 5.40 03/22/2014 [facility] MCH 29.4 pg 27.0 - 31.0 03/22/2014 [facility] MCHC 33.3 g/dL 32.0 - 36.0 03/22/2014 [facility] Platelet 303 K/CMM 133 - 450 03/22/2014 [facility] MPV 6.5 fL 7.4 - 10.4 03/22/2014 [facility] CHEM PANEL eGFR 104 mL/min/1.73m2 03/21/2014 1Result Comment: The eGFR is calculated using [...] from the National Kidney Disease Education Program (NKDEP) which additionally recommends that when the eGFR is used in patients with extremes of body mass index for purposes of drug dosing, the eGFR should be multiplied by the estimated BMI. [facility] CHEM PANEL AGAP 16.0 meq/L 10.0 - 20.0 03/21/2014 [facility] CHEM PANEL Creatinine Lvl 0.6 mg/dL 0.5 - 1.4 03/21/2014 [facility] CHEM PANEL Total Protein 6.0 g/dL 6.4 - 8.4 03/21/2014 [facility] CHEM PANEL CO2 24 meq/L 24 - 32 03/21/2014 [facility] CHEM PANEL Calcium Lvl 8.4 mg/dL 8.5 - 10.5 03/21/2014 [facility] CHEM PANEL B/C Ratio 8 6 - 25 03/21/2014 [facility] CHEM PANEL Globulin 3.5 g/dL 2.0 - 4.0 03/21/2014 [facility] CHEM PANEL Albumin Lvl 2.5 g/dL 3.5 - 5.0 03/21/2014 [facility] CHEM PANEL Bili Total 0.4 mg/dL 0.2 - 1.3 03/21/2014 [facility] CHEM PANEL Glucose Lvl 120 mg/dL 70 - 99 03/21/2014 3Interpretive Data: Adult reference range values reflect the clinical guidelines of the [place] [employer]. [facility] CHEM PANEL BUN 5 mg/dL 7 - 22 03/21/2014 [facility] CHEM PANEL Alk Phos 178 unit/L 39 - 136 03/21/2014 [facility] CHEM PANEL AST 40 unit/L 0 - 37 03/21/2014 [facility] CHEM PANEL ALT 114 unit/L 0 - 65 03/21/2014 [facility] CHEM PANEL A/G Ratio 0.7 0.7 - 1.6 03/21/2014 [facility] CHEM PANEL Chloride Lvl 100 meq/L 95 - 109 03/21/2014 [facility] CHEM PANEL Potassium Lvl 4.0 meq/L 3.5 - 5.1 03/21/2014 [facility] CHEM PANEL Sodium Lvl 136 meq/L 135 - 145 03/21/2014 [facility] HEMATOLOGY WBC 11.0 K/CMM 3.7 - 10.4 03/21/2014 [facility] HEMATOLOGY RBC 3.92 M/CMM 4.20 - 5.40 03/21/2014 [facility] RDW 12.6 % 11.5 - 14.5 03/21/2014 [facility] Hct 34.4 % 36.0 - 48.0 03/21/2014 [facility] MCHC 33.8 g/dL 32.0 - 36.0 03/21/2014 [facility] MCV 87.7 fL 80.0 - 98.0 03/21/2014 [facility] MCH 29.7 pg 27.0 - 31.0 03/21/2014 [facility] HEMATOLOGY MPV 7.0 fL 7.4 - 10.4 03/21/2014 [facility] Platelet 331 K/CMM 133 - 450 03/21/2014 [facility] Hgb 11.6 g/dL 12.0 - 16.0 03/21/2014 [facility] HEMATOLOGY Basophils 0.4 % 0.0 - 1.0 03/21/2014 [facility] HEMATOLOGY Eosinophils 0.1 % 0.0 - 4.0 03/21/2014 [facility] HEMATOLOGY Lymphocytes # 1.9 K/CMM 1.0 - 5.5 03/21/2014 [facility] HEMATOLOGY Segs-Bands # 8.0 K/CMM 1.5 - 8.1 03/21/2014 [facility] HEMATOLOGY Monocytes 9.5 % 2.0 - 12.0 03/21/2014 [facility] HEMATOLOGY Lymphocytes 17.3 % 20.0 - 40.0 03/21/2014 [facility] HEMATOLOGY Monocytes # 1.0 K/CMM 0.0 - 0.8 03/21/2014 [facility] HEMATOLOGY Segs 72.7 % 45.0 - 75.0 03/21/2014 [facility] CHEM PANEL Amylase Lvl 28 unit/L 25 - 115 03/20/2014 [facility] CHEM PANEL Globulin 4.6 g/dL 2.0 - 4.0 03/20/2014 [facility] CHEM PANEL A/G Ratio 0.7 0.7 - 1.6 03/20/2014 [facility] CHEM PANEL B/C Ratio 9 6 - 25 03/20/2014 [facility] CHEM PANEL AGAP 11.5 meq/L 10.0 - 20.0 03/20/2014 [facility] CHEM PANEL ALT 158 unit/L 0 - 65 03/20/2014 [facility] CHEM PANEL AST 19 unit/L 0 - 37 03/20/2014 [facility] CHEM PANEL Bili Total 0.4 mg/dL 0.2 - 1.3 03/20/2014 [facility] CHEM PANEL Alk Phos 181 unit/L 39 - 136 03/20/2014 [facility] CHEM PANEL Albumin Lvl 3.1 g/dL 3.5 - 5.0 03/20/2014 [facility] CHEM PANEL eGFR 84 mL/min/1.73m2 03/20/2014 2Result Comment: The eGFR is calculated using [...] from the National Kidney Disease Education Program (NKDEP) which additionally recommends that when the eGFR is used in patients with extremes of body mass index for purposes of drug dosing, the eGFR should be multiplied by the estimated BMI. [facility] CHEM PANEL Total Protein 7.7 g/dL 6.4 - 8.4 03/20/2014 [facility] CHEM PANEL Calcium Lvl 9.6 mg/dL 8.5 - 10.5 03/20/2014 [facility] CHEM PANEL Glucose Lvl 123 mg/dL 70 - 99 03/20/2014 4Interpretive Data: Adult reference range values reflect the clinical guidelines of the [place] [employer]. [facility] CHEM PANEL CO2 29 meq/L 24 - 32 03/20/2014 [facility] CHEM PANEL Creatinine Lvl 0.8 mg/dL 0.5 - 1.4 03/20/2014 [facility] CHEM PANEL BUN 7 mg/dL 7 - 22 03/20/2014 [facility] CHEM PANEL Potassium Lvl 3.5 meq/L 3.5 - 5.1 03/20/2014 [facility] CHEM PANEL Chloride Lvl 101 meq/L 95 - 109 03/20/2014 [facility] CHEM PANEL Sodium Lvl 138 meq/L 135 - 145 03/20/2014 [facility] HEMATOLOGY MPV 6.9 fL 7.4 - 10.4 03/20/2014 [facility] Platelet 315 K/CMM 133 - 450 03/20/2014 [facility] MCH 29.5 pg 27.0 - 31.0 03/20/2014 [facility] MCHC 33.7 g/dL 32.0 - 36.0 03/20/2014 [facility] RDW 12.4 % 11.5 - 14.5 03/20/2014 [facility] Hgb 12.7 g/dL 12.0 - 16.0 03/20/2014 [facility] MCV 87.4 fL 80.0 - 98.0 03/20/2014 [facility] Hct 37.8 % 36.0 - 48.0 03/20/2014 [facility] RBC 4.32 M/CMM 4.20 - 5.40 03/20/2014 [facility] WBC 7.9 K/CMM 3.7 - 10.4 03/20/2014 [facility] HEMATOLOGY Basophils # 0.1 K/CMM 0.0 - 0.2 03/20/2014 [facility] HEMATOLOGY Eosinophils # 0.2 K/CMM 0.0 - 0.5 03/20/2014 [facility] HEMATOLOGY Lymphocytes # 1.9 K/CMM 1.0 - 5.5 03/20/2014 [facility] HEMATOLOGY Segs-Bands # 4.8 K/CMM 1.5 - 8.1 03/20/2014 [facility] HEMATOLOGY Monocytes # 0.9 K/CMM 0.0 - 0.8 03/20/2014 [facility] HEMATOLOGY Eosinophils 2.8 % 0.0 - 4.0 03/20/2014 [facility] HEMATOLOGY Monocytes 10.9 % 2.0 - 12.0 03/20/2014 [facility] HEMATOLOGY Basophils 1.0 % 0.0 - 1.0 03/20/2014 [facility] HEMATOLOGY Lymphocytes 24.2 % 20.0 - 40.0 03/20/2014 [facility] HEMATOLOGY Segs 61.1 % 45.0 - 75.0 03/20/2014 [facility] URINE AND STOOL UA Urobilinogen <=1.0 mg/dL 0.1 - 1.0 03/20/2014 [facility] URINE AND STOOL UA RBC 3 /HPF 0 - 2 03/20/2014 [facility] URINE AND STOOL UA WBC 7 /HPF 0 - 5 03/20/2014 [facility] URINE AND STOOL UA Bacteria Few /HPF None Seen /HPF 03/20/2014 [facility] URINE AND STOOL UA Mucus Many /LPF None Seen /LPF 03/20/2014 [facility] URINE AND STOOL UA Bili Negative *NA* (03/20/14 7:17 AM) Negative 03/20/2014 [facility] URINE AND STOOL UA Blood Negative (03/20/14 7:17 AM) Negative 03/20/2014 [facility] URINE AND STOOL UA Nitrite Negative (03/20/14 7:17 AM) Negative 03/20/2014 [facility] URINE AND STOOL UA Leuk Est Negative (03/20/14 7:17 AM) Negative 03/20/2014 [facility] URINE AND STOOL UA Sq Epi Occasional /LPF Few /LPF 03/20/2014 [facility] URINE AND STOOL UA Protein Negative mg/dL Negative mg/dL 03/20/2014 [facility] URINE AND STOOL UA Glucose Negative mg/dL Negative mg/dL 03/20/2014 [facility] URINE AND STOOL UA Ketones Negative mg/dL Negative mg/dL 03/20/2014 [facility] URINE AND STOOL UA Spec Grav 1.019 <=1.030 03/20/2014 [facility] URINE AND STOOL UA pH 5.0 5.0 - 8.0 03/20/2014 [facility] URINE AND STOOL UA Turbidity Slight *ABN* (03/20/14 7:17 AM) Clear 03/20/2014 [facility] URINE AND STOOL UA Color Yellow *NA* (03/20/14 7:17 AM) Yellow 03/20/2014 [facility] Abdomen 2 views DX Abdomen 2 views DX ABDOMEN-2 VIEW HX: Laprascopic to open protocol Examination of the abdomen and AP and crosstable lateral portable technique reveals no evidence of unusual calcification. The bowel gas pattern is within normal limits. There is no evidence of organ enlargement. Visualized osseous structures are within normal limits. There are 2 metal clips in the region the gallbladder fossa. Numerous cutaneous rosibel are present anteriorly. A Stephen-Sheriff drain is in position. No other evidence of radiopaque foreign body. IMPRESSION: As above. No unexpected radiopaque foreign body identified. SL: 12 03/20/2014 - - Read by: Jasen Davis MD Dictated Date/time: 03/20/14 12:36 Electronically Signed by: Jasen Davis MD 03/20/14 12:40 FINAL REPORT [facility] Digital Mammo Screen Lopez MA w luc Digital Mammo Screen Lopez MA w luc - DIGITAL MAMMO SCREEN LOPEZ MA W LUC BILATERAL DIGITAL SCREENING MAMMOGRAM 3D/2D WITH CAD: 09/17/2013 CLINICAL: Routine. 2D digital mammographic images and 3D digital tomosynthesis images were obtained in the CC and MLO projections. Current study was evaluated with a Computer Aided Detection (CAD) system. Comparison is made to exams dated: 07/10/2012 mammogram, 01/11/2011 mammogram, 12/16/2008 mammogram, 08/20/2007 mammogram and 08/18/2006 mammogram - [facility]. The tissue of both breasts is heterogeneously dense, which could obscure detection of small masses. There are benign vascular calcifications in both breasts. No significant masses, calcifications, or other findings are seen in either breast. There has been no significant interval change. IMPRESSION: BENIGN There is no mammographic evidence of malignancy. A screening mammogram in one year is recommended. Iris klein/lynne:09/18/2013 08:27:41 Algorithm Developer: Shey Quintanilla, [facility] This exam was dictated and interpreted by [id number] for [facility]. letter sent: Normal exam Mammogram BI-RADS: 2 Benign 09/17/2013 - - Read by: Iris Meraz MD Dictated Date/time: 09/18/13 08:27 Electronically Signed by: Iris Meraz MD 09/18/13 08:27 FINAL REPORT [facility] Vital Signs Vital Sign Value Date Comments Source Weight 79.545 03/22/2014 [facility] Height 167.6 cm 03/22/2014 [facility] BMI Calculated 28.32 03/22/2014 [facility] Temperature Oral (F) 98.4 F 03/22/2014 [facility] Heart Rate 106 03/22/2014 [facility] Respitory Rate 14 03/22/2014 [facility] Systolic (mm Hg) 126 03/22/2014 [facility] Diastolic (mm Hg) 82 03/22/2014 [facility] Diastolic (mm Hg) 75 03/22/2014 [facility] Systolic (mm Hg) 124 03/22/2014 [facility] Temperature Oral (F) 98.2 F 03/22/2014 [facility] Heart Rate 102 03/22/2014 [facility] Respitory Rate 16 03/22/2014 [facility] Systolic (mm Hg) 134 03/22/2014 [facility] Diastolic (mm Hg) 80 03/22/2014 [facility] Temperature Oral (F) 98.5 F 03/22/2014 [facility] Respitory Rate 16 03/22/2014 [facility] Heart Rate 109 03/22/2014 [facility] Weight 79.545 03/20/2014 [facility] BMI Calculated 28.3 03/20/2014 [facility] Height 167.64 cm 03/20/2014 [facility] Encounters Location Location Details Encounter Type Encounter Number Reason For Visit Attending Provider ADM Date DC Date Status Source [facility] Outpatient [id number] ROUTINE HEIDI HUNG 01/11/2011 Active [facility] [id number] DIABETES, HTN, COLON CA SCRENNING, CONSTIPATION, FAMILY ROSY AD 09/07/2011 Active [facility] [id number] Connie Tovar 09/17/2013 09/18/2013 [facility] [id number] Bhupinder Sims 03/21/2014 03/22/2014 [facility] [id number] Connie Tovar 11/11/2014 11/12/2014 [facility] [id number] Connie Tovar 01/20/2016 01/21/2016 [facility] [id number] Connie Tovar 03/21/2017 03/22/2017 [facility] [id number] UNK TRAN MCKENZIE Cancel [facility] [id number] ROUTINE CONNIE TOVAR Active [facility] Procedures Procedure Code Date Perfomer Comments Source Hysterectomy [id number] 12/08/2007 [facility] Colonoscopy [id number] [facility] Diagnostic laparoscopy of female pelvis [id number] [facility] Esophagoduodenostomy [id number] [facility] Operation [id number] [facility] Tonsillectomy and adenoidectomy [id number] [facility]
--- OUTSIDE RECORDS SUMMARY | 2018-03-15 05:22 | XMS REPORT | Summary of Care ---
Author Author [facility] Organization [facility] Address Unknown Phone Unavailable Encounter HQ [employer](FIN) [id number] Date(s): 01/20/16 - 01/20/16 [facility] [address] [place] [address]- Final: Encounter for screening mammogram for malignant neoplasm of breast Discharge Disposition: Home or Self Care Attending [...]
[2018-03-15 08:30] VITALS: BP 117/81
--- NOTE | 2018-03-15 14:45 | Operative Report ---
DATE OF PROCEDURE: March 15, 2018 PREOPERATIVE DIAGNOSES 1. Heberden node, left long finger distal phalanx. 2. Mucous cyst. POSTOPERATIVE DIAGNOSES 1. Heberden node, left long finger distal phalanx. 2. Mucous cyst. PROCEDURES PERFORMED 1. Excision of cyst, left long finger distal phalanx. 2. Arthrotomy with removal of osteophyte, distal phalanx. ANESTHESIA: General. HISTORY: The patient is a 58-year-old, [id number]-gejufixu female with said diagnoses. Risks, benefits and alternatives of treatment were discussed with the patient. She is prepared to undergo the procedures outlined. DETAILS OF PROCEDURE: Patient was marked preoperatively in the holding area. She was brought to the operating theater. After the induction of adequate general anesthesia, she is prepped and draped in a supine position. A time out is performed. An incision is marked out along the radial aspect of the long finger distal phalanx directly over the cyst, and then it is curved over the DIP joint. A Tourni-Cot is placed around the left long finger down to the base of the proximal phalanx. The incision is then made through the skin and subcutaneous tissues. Venous tributaries are controlled with bipolar cautery. The cyst is identified directly in the subcutaneous plane, and it is dissected and traced to the DIP joint along the radial aspect. The cyst and its communicating stalk to the DIP joint are then excised and sent for permanent pathologic examination. There is an osteophyte that is palpable that is presumed to be the etiology of the mucous cyst. Using a rongeur, this osteophyte is removed until the edge of the distal phalanx is smooth. The wound is copiously irrigated with bacteriostatic saline. The joint is closed with a single 4-0 Vicryl suture in a figure-of-8 fashion. The skin is irrigated, and then the soft tissues are closed with 5-0 nylon in an interrupted horizontal mattress fashion. The Tourni-Cot is removed. The finger pinks up nicely. The wound is noted to be hemostatic. A sterile, bulky, conforming bandage is applied. A Marcaine field block is performed at the base of the left long finger. The patient is then returned to the recovery room in satisfactory condition and discharged with a postoperative instruction sheet as well as a followup appointment. Job#: [id number] MH
== END | disposition home or self-care (01) ==
LOC: OR 05:18
PROVIDERS: ATTEND Plastic Surgery
DX: M67.844 Other specified disorders of tendon, left hand (principal); M15.1 Heberden's nodes (with arthropathy); I10 Essential (primary) hypertension; E11.9 Type 2 diabetes mellitus without complications; E03.9 Hypothyroidism, unspecified; Z01.810 Encounter for preprocedural cardiovascular examination; Z79.84 Long term (current) use of oral hypoglycemic drugs
CPT/HCPCS: 26160; 36415; 82948; 88304; 93005; J0690; J1100; J2001; J2250; J2405; J2704